=== PATIENT | female | born 1955 | race African-American/Black ===

== ENCOUNTER 2020-02-10 18:40 | Emergency (ER) | payer OTHER ==
[~2020-02-10] VITALS: Ht 157.5 cm; Wt 74.4 kg
[~2020-02-10 18:40] MED LIST: ASPIR 8181 MG PO; ATENOLOL25 MG; CIPRO500 MG PO; CLARITIN10 MG PO; ESGIC CAPSULE1 EACH PO; FER300 PO; GLU500 PO; HYDROCHLOROTH12.5 M2 PO; LAC PO; LEVEMIR100 U/M1 SC; LISINOPRIL40 MG PO; LYRICA75 M1; THERA TABS1 TAB PO; VITC PO
[2020-02-10 18:49] VITALS: BP 190/77; Ht 157.5 cm; Wt 74.4 kg
== END 2020-02-10 21:40 | disposition home or self-care (01) ==
LOC: ED 18:40
DX: S29.011A Strain of muscle and tendon of front wall of thorax, initial encounter (principal); I10 Essential (primary) hypertension; E11.9 Type 2 diabetes mellitus without complications; Z88.5 Allergy status to narcotic agent; Z88.6 Allergy status to analgesic agent; X58.XXXA Exposure to other specified factors, initial encounter; Y93.89 Activity, other specified; Y92.89 Other specified places as the place of occurrence of the external cause; Y99.8 Other external cause status
CPT/HCPCS: 94150; J1200; J1885; Q0092